=== PATIENT | male | born 1960 | race Hispanic/Latino ===

== ENCOUNTER → 2020-11-04 | Outpatient (CLI) | payer MEDICAID | END | disposition home or self-care (01) | LOC: RAH 10:59 | PROVIDERS: ATTEND Otolaryngology Plastic Surgery within the Head & Neck | DX: R22.1 Localized swelling, mass and lump, neck (principal) | CPT/HCPCS: 76536 ==

== ENCOUNTER → 2020-12-08 | Outpatient (CLI) | payer MEDICAID ==
[2020-12-08 10:30] LABS: INR 1.1 (0.85-1.15); PROTHROMBIN TIME 11.9 SEC (9.6-11.6)
[2020-12-08 10:32] LABS: PARTIAL THROMBOPLASTIN TIME 26.6 SEC (26.3-35.5)
== END | disposition home or self-care (01) ==
LOC: RAH 09:51
PROVIDERS: ATTEND Otolaryngology Plastic Surgery within the Head & Neck
DX: D11.0 Benign neoplasm of parotid gland (principal); Z79.01 Long term (current) use of anticoagulants
CPT/HCPCS: 36415; 42400; 76942; 85610; 85730; C1887; 10005; 38505

== ENCOUNTER 2023-04-09 11:24 | Emergency (ER) | payer MEDICAID ==
[~2023-04-09] VITALS: Ht 175.3 cm; Wt 95.3 kg
[2023-04-09] MEDS ORDERED: MORPHINE 4 MG SYG IM ONE (12:30)
[2023-04-09 15:38] VITALS: BP 198/112; PULSE 82; RESP 20; O2SAT 99
[2023-04-09] MEDS ORDERED: ACET-2079 PO (15:44)
[2023-04-09] MEDS ORDERED: IBUP-2077 PO (15:44)
[2023-04-09] MEDS ORDERED: HYDROCODONE/ACETAMINOPHEN 5/325 MG TAB PO ONE (16:00)
== END 2023-04-09 16:24 | disposition home or self-care (01) ==
LOC: EDH 11:24
DX: S76.311A Strain of muscle, fascia and tendon of the posterior muscle group at thigh level, right thigh, initial encounter (principal); E11.9 Type 2 diabetes mellitus without complications; E78.00 Pure hypercholesterolemia, unspecified; I10 Essential (primary) hypertension; W18.39XA Other fall on same level, initial encounter; Y93.89 Activity, other specified; Y92.89 Other specified places as the place of occurrence of the external cause; Y99.8 Other external cause status
CPT/HCPCS: 99285; 29505; 73700; 96372; J2270